=== PATIENT | male | born 1955 | race Caucasian/White ===

== ENCOUNTER 2021-10-13 08:56 | Day surgery (SDC) | payer MEDICAID ==
[~2021-10-13 08:56] MED LIST: Lactated Ringers 1,000 ML IV SCH; Lidocaine 1%/Sod Bicarbonate in NS 8.4% 1 ML Syringe IDERM PRN; Sodium Chloride 0.9% 10 ML Syringe FLUSH PRN; Sodium Chloride 0.9% 10 ML Syringe FLUSH SCH
[2021-10-13] MEDS ORDERED: Sodium Chloride 0.9% 1,000 ML IV SCH (10:00)
[2021-10-13] MEDS ORDERED: traMADol 50 MG Tab PO ONE (11:00)
[2021-10-13] MEDS ORDERED: Pregabalin 25 MG Cap PO ONE (11:00)
[2021-10-13] MEDS ORDERED: Propofol 200 MG/20 ML SDV ONE ×3 (11:03→11:56)
[2021-10-13] MEDS ORDERED: fentaNYL 100 MCG/2 ML SDV ONE (11:26)
[2021-10-13 13:04] VITALS: BP 127/75; PULSE 78
[2021-10-13] MEDS ORDERED: Sodium Chloride 0.9% 1,000 ML ONE (13:34)
== END 2021-10-13 12:50 | disposition home or self-care (01) ==
LOC: JD.SDS 08:56
PROVIDERS: ATTEND Surgery
DX: Z12.11 Encounter for screening for malignant neoplasm of colon (principal); D12.3 Benign neoplasm of transverse colon; K57.30 Diverticulosis of large intestine without perforation or abscess without bleeding; K64.9 Unspecified hemorrhoids; I12.9 Hypertensive chronic kidney disease with stage 1 through stage 4 chronic kidney disease, or unspecified chronic kidney disease; E78.5 Hyperlipidemia, unspecified; E11.22 Type 2 diabetes mellitus with diabetic chronic kidney disease; I25.10 Atherosclerotic heart disease of native coronary artery without angina pectoris; N18.30 Chronic kidney disease, stage 3 unspecified; E11.42 Type 2 diabetes mellitus with diabetic polyneuropathy; G47.33 Obstructive sleep apnea (adult) (pediatric); N40.0 Benign prostatic hyperplasia without lower urinary tract symptoms; Z98.890 Other specified postprocedural states; Z79.82 Long term (current) use of aspirin; Z79.4 Long term (current) use of insulin; Z79.899 Other long term (current) drug therapy; Z88.8 Allergy status to other drugs, medicaments and biological substances; Z87.891 Personal history of nicotine dependence
CPT/HCPCS: 45380; A9270; J2704; J3010; J7030; 00812

== ENCOUNTER 2022-06-17 12:47 | Inpatient (IN) | payer MEDICAID ==
[2022-06-17] MEDS ORDERED: Sodium Chloride 0.9% 10 ML Syringe FLUSH PRN (12:51)
[2022-06-17] MEDS ORDERED: Sodium Chloride 0.9% 1,000 ML IV ONE ×2 (12:51→14:15)
[2022-06-17] MEDS ORDERED: Cefepime 2 GM in Sodium Chloride 0.9% 50 ML IV ONE (15:13)
[2022-06-17] MEDS ORDERED: Insulin Regular, Human 100 Units/ML 3 ML Vial IV ONE ×3 (15:15→23:30)
[2022-06-17 17:12] LABS: CORONAVIRUS COVID-19 NAA NEGATIVE (NEGATIVE)
[2022-06-17] MEDS ORDERED: Ondansetron 4 MG/2 ML SDV IV PRN (17:44)
[2022-06-17] MEDS ORDERED: Heparin Sodium 5,000 Units/ML Vial SUBCUT SCH (17:45)
[2022-06-17] MEDS: Acetaminophen 325 MG Tab PO PRN (20:54)
[2022-06-17] MEDS: Heparin Sodium 5,000 Units/ML Vial SUBCUT SCH ×2 (20:55→23:39)
[2022-06-17] MEDS ORDERED: Insulin Lispro 100 Unit/ML 3 ML KwikPen SUBCUT ONE (21:09)
[2022-06-17] MEDS: Insulin Lispro 100 Unit/ML 3 ML KwikPen SUBCUT SCH (21:12)
[2022-06-17] MEDS: Insulin Glargine,Human Rec. Analog 100 Units/ML 3 ML Pen SUBCUT SCH (21:32)
[2022-06-17] MEDS: Mycophenolate Mofetil 250 MG Cap PO SCH (23:46)
[2022-06-18] MEDS: Acetaminophen 325 MG Tab PO PRN ×3 (00:59→23:45)
[2022-06-18] MEDS: Sodium Chloride 0.9% 1,000 ML IV SCH ×2 (03:21→13:21)
[2022-06-18] MEDS: Heparin Sodium 5,000 Units/ML Vial SUBCUT SCH ×2 (06:16→19:03)
[2022-06-18] MEDS: Insulin Glargine,Human Rec. Analog 100 Units/ML 3 ML Pen SUBCUT SCH ×3 (06:48→22:15)
[2022-06-18] MEDS: Insulin Lispro 100 Unit/ML 3 ML KwikPen SUBCUT SCH ×8 (06:49→22:16)
[2022-06-18] MEDS: Aspirin 81 MG Tab.Chew PO SCH (09:06)
[2022-06-18] MEDS: Metoprolol Tartrate 25 MG Tab PO SCH ×3 (09:06→23:50)
[2022-06-18] MEDS: Pregabalin 25 MG Cap PO SCH ×3 (09:07→23:47)
[2022-06-18] MEDS: Mycophenolate Mofetil 250 MG Cap PO SCH ×2 (09:07→19:45)
[2022-06-18] MEDS: predniSONE 5 MG Tab PO SCH (09:08)
[2022-06-18] MEDS ORDERED: VANCOmycin 1.25 GM/250 ML 1.25 GM in Premix Bag 1 BAG IV SCH (16:00)
[2022-06-18] MEDS ORDERED: oxyCODONE 5 MG Tab PO PRN (17:53)
[2022-06-18] MEDS: Cefepime 2 GM in Sodium Chloride 0.9% 50 ML IV SCH (17:53)
[2022-06-18] MEDS: traMADol 50 MG Tab PO PRN (19:46)
[2022-06-19] MEDS: Sodium Chloride 0.9% 1,000 ML IV SCH ×2 (01:31→03:04)
[2022-06-19] MEDS: Acetaminophen 325 MG Tab PO PRN ×2 (04:08→21:20)
[2022-06-19] MEDS: traMADol 50 MG Tab PO PRN ×2 (04:08→21:39)
[2022-06-19] MEDS: Insulin Lispro 100 Unit/ML 3 ML KwikPen SUBCUT SCH ×7 (06:56→21:25)
[2022-06-19] MEDS: Heparin Sodium 5,000 Units/ML Vial SUBCUT SCH ×2 (06:56→18:28)
[2022-06-19] MEDS ORDERED: Insulin Lispro 100 Unit/ML 3 ML KwikPen SUBCUT SCH ×2 (07:30→17:30)
[2022-06-19] MEDS: Pregabalin 25 MG Cap PO SCH ×2 (08:18→21:20)
[2022-06-19] MEDS: predniSONE 5 MG Tab PO SCH (08:19)
[2022-06-19] MEDS: Aspirin 81 MG Tab.Chew PO SCH (08:19)
[2022-06-19] MEDS: Metoprolol Tartrate 25 MG Tab PO SCH ×2 (08:19→21:20)
[2022-06-19] MEDS: Mycophenolate Mofetil 250 MG Cap PO SCH ×2 (08:32→21:20)
[2022-06-19] MEDS: Insulin Glargine,Human Rec. Analog 100 Units/ML 3 ML Pen SUBCUT SCH ×2 (08:32→21:38)
[2022-06-19] MEDS: Cefepime 2 GM in Sodium Chloride 0.9% 50 ML IV SCH (15:12)
[2022-06-20] MEDS: Acetaminophen 325 MG Tab PO PRN ×3 (01:13→16:42)
[2022-06-20] MEDS: Heparin Sodium 5,000 Units/ML Vial SUBCUT SCH ×2 (06:42→18:26)
[2022-06-20] MEDS: Insulin Lispro 100 Unit/ML 3 ML KwikPen SUBCUT SCH ×8 (09:27→21:23)
[2022-06-20] MEDS: Insulin Glargine,Human Rec. Analog 100 Units/ML 3 ML Pen SUBCUT SCH ×2 (09:28→21:24)
[2022-06-20] MEDS: predniSONE 5 MG Tab PO SCH (09:29)
[2022-06-20] MEDS: Pregabalin 25 MG Cap PO SCH ×2 (09:29→21:25)
[2022-06-20] MEDS: Metoprolol Tartrate 25 MG Tab PO SCH ×2 (09:29→21:26)
[2022-06-20] MEDS: Aspirin 81 MG Tab.Chew PO SCH (09:29)
[2022-06-20] MEDS: Mycophenolate Mofetil 250 MG Cap PO SCH ×2 (09:33→21:25)
[2022-06-20] MEDS: cefTRIAXone 2 GM in Sodium Chloride 0.9% 100 ML IV SCH (11:53)
[2022-06-20] MEDS: Polyethylene Glycol 3350 Powder 17 GM Packet PO SCH (11:53)
[2022-06-21] MEDS: Acetaminophen 325 MG Tab PO PRN (06:22)
[2022-06-21] MEDS: Heparin Sodium 5,000 Units/ML Vial SUBCUT SCH ×2 (06:49→17:57)
[2022-06-21] MEDS: Polyethylene Glycol 3350 Powder 17 GM Packet PO SCH (08:11)
[2022-06-21] MEDS: Metoprolol Tartrate 25 MG Tab PO SCH ×2 (08:12→21:04)
[2022-06-21] MEDS: predniSONE 5 MG Tab PO SCH (08:12)
[2022-06-21] MEDS: Pregabalin 25 MG Cap PO SCH ×2 (08:12→21:03)
[2022-06-21] MEDS: Aspirin 81 MG Tab.Chew PO SCH (08:12)
[2022-06-21] MEDS: Mycophenolate Mofetil 250 MG Cap PO SCH ×2 (08:22→21:03)
[2022-06-21] MEDS: Insulin Glargine,Human Rec. Analog 100 Units/ML 3 ML Pen SUBCUT SCH ×2 (08:29→21:06)
[2022-06-21] MEDS: Insulin Lispro 100 Unit/ML 3 ML KwikPen SUBCUT SCH ×6 (08:31→21:13)
[2022-06-21] MEDS: cefTRIAXone 2 GM in Sodium Chloride 0.9% 100 ML IV SCH (12:36)
[2022-06-21] MEDS ORDERED: Piperacillin/Tazobactam 4.5 GM in Sodium Chloride 0.9% 100 ML IV ONE (13:00)
[2022-06-21] MEDS: cefTRIAXone 1 GM in Sodium Chloride 0.9% 100 ML IV SCH (16:17)
[2022-06-21] MEDS ORDERED: VANCOmycin 750 MG/150 ML 750 MG in Premix Bag 1 BAG IV SCH (17:00)
[2022-06-21] MEDS ORDERED: Pantoprazole 40 MG Tab.CR PO ONE (17:15)
[2022-06-21] MEDS ORDERED: Alum Hydrox/Mag Hydrox/Simeth 30 ML, Lidocaine 2% 15 ML PO ONE ×2 (17:15)
[2022-06-21] MEDS: Piperacillin/Tazobactam 4.5 GM in Sodium Chloride 0.9% 100 ML IV SCH (21:16)
[2022-06-21] MEDS: traMADol 50 MG Tab PO PRN (21:34)
[2022-06-22] MEDS: Piperacillin/Tazobactam 4.5 GM in Sodium Chloride 0.9% 100 ML IV SCH (05:02)
[2022-06-22] MEDS: Heparin Sodium 5,000 Units/ML Vial SUBCUT SCH (05:02)
[2022-06-22] MEDS: Insulin Lispro 100 Unit/ML 3 ML KwikPen SUBCUT SCH ×2 (06:46→11:33)
[2022-06-22] MEDS: Polyethylene Glycol 3350 Powder 17 GM Packet PO SCH (08:33)
[2022-06-22] MEDS: Metoprolol Tartrate 25 MG Tab PO SCH (08:34)
[2022-06-22] MEDS: predniSONE 5 MG Tab PO SCH (08:34)
[2022-06-22] MEDS: Mycophenolate Mofetil 250 MG Cap PO SCH (08:35)
[2022-06-22] MEDS: Pregabalin 25 MG Cap PO SCH (08:35)
[2022-06-22] MEDS: Insulin Glargine,Human Rec. Analog 100 Units/ML 3 ML Pen SUBCUT SCH (08:36)
[2022-06-22] MEDS: Aspirin 81 MG Tab.Chew PO SCH (08:40)
[2022-06-22] MEDS: traMADol 50 MG Tab PO PRN (08:41)
[2022-06-22] MEDS ORDERED: Tacrolimus 1 MG Cap PO SCH (09:00)
[2022-06-22] MEDS ORDERED: Magnesium Sulfate/Water 2 GM in Premix Bag 1 BAG IV ONE (09:30)
[2022-06-22] MEDS: cefTRIAXone 1 GM in Sodium Chloride 0.9% 100 ML IV SCH (12:34)
[2022-06-22 14:58] VITALS: BP 107/58; PULSE 75
== END 2022-06-22 14:25 | disposition home or self-care (01) | DRG 871 ==
LOC: JD.ED 12:47 → JD.MS 17:38
PROVIDERS: ADMIT Internal Medicine; ATTEND Internal Medicine
DX: A41.9 Sepsis, unspecified organism (principal); A41.4 Sepsis due to anaerobes; E11.00 Type 2 diabetes mellitus with hyperosmolarity without nonketotic hyperglycemic-hyperosmolar coma (NKHHC); D84.9 Immunodeficiency, unspecified; N18.30 Chronic kidney disease, stage 3 unspecified; N17.9 Acute kidney failure, unspecified; Z94.0 Kidney transplant status; E87.1 Hypo-osmolality and hyponatremia; Z86.718 Personal history of other venous thrombosis and embolism; N39.0 Urinary tract infection, site not specified; E11.43 Type 2 diabetes mellitus with diabetic autonomic (poly)neuropathy; K31.84 Gastroparesis; R65.20 Severe sepsis without septic shock; E11.65 Type 2 diabetes mellitus with hyperglycemia; E11.40 Type 2 diabetes mellitus with diabetic neuropathy, unspecified; E11.22 Type 2 diabetes mellitus with diabetic chronic kidney disease; N18.2 Chronic kidney disease, stage 2 (mild); E87.5 Hyperkalemia; H54.7 Unspecified visual loss; I25.10 Atherosclerotic heart disease of native coronary artery without angina pectoris; E78.00 Pure hypercholesterolemia, unspecified; I12.9 Hypertensive chronic kidney disease with stage 1 through stage 4 chronic kidney disease, or unspecified chronic kidney disease; G47.30 Sleep apnea, unspecified; Z20.822 Contact with and (suspected) exposure to COVID-19; N40.0 Benign prostatic hyperplasia without lower urinary tract symptoms; E66.9 Obesity, unspecified; D69.6 Thrombocytopenia, unspecified; Z96.659 Presence of unspecified artificial knee joint; Z79.4 Long term (current) use of insulin; Z79.82 Long term (current) use of aspirin; Z79.52 Long term (current) use of systemic steroids; Z79.899 Other long term (current) drug therapy; Z88.8 Allergy status to other drugs, medicaments and biological substances; Z95.5 Presence of coronary angioplasty implant and graft; Z86.16 Personal history of COVID-19; Z68.35 Body mass index [BMI] 35.0-35.9, adult
CPT/HCPCS: 0240U; 36415; 71045; 71045-26; 74176; 74176-26; 80048; 80053; 80197; 80202; 81001; 82009; 82947; 83605; 83735; 84145; 85007; 85025; 85027; 85610; 86140; 87040; 87077; 87086; 87088; 87154; 87186; 93005; 97116-GP; 97162-GP; A9270-GY; J0692; J0696; J1644; J1815; J1815-GY; J2543; J3370; J3475; J3490; J7030; J7050; J7507; J7512

== ENCOUNTER 2022-07-08 11:22 | Emergency (ER) | payer MEDICARE, MEDICAID ==
[2022-07-08 11:55] VITALS: PULSE 102
[2022-07-08] MEDS ORDERED: Sodium Chloride 0.9% 10 ML Syringe FLUSH PRN (12:32)
[2022-07-08] MEDS ORDERED: Sodium Chloride 0.9% 1,000 ML IV ONE (12:32)
[2022-07-08 15:03] LABS: CORONAVIRUS COVID-19 NAA NEGATIVE (NEGATIVE)
[2022-07-08 15:43] VITALS: BP 106/50
[2022-07-08] MEDS ORDERED: Levofloxacin/Dextrose 5%-Water 750 MG in Premix Bag 1 BAG IV ONE (16:54)
== END 2022-07-08 23:13 | disposition home or self-care (01) ==
LOC: JD.ED 11:22
DX: N43.3 Hydrocele, unspecified (principal); I86.1 Scrotal varices; N30.01 Acute cystitis with hematuria; I12.9 Hypertensive chronic kidney disease with stage 1 through stage 4 chronic kidney disease, or unspecified chronic kidney disease; N18.30 Chronic kidney disease, stage 3 unspecified; I25.10 Atherosclerotic heart disease of native coronary artery without angina pectoris; E11.9 Type 2 diabetes mellitus without complications; E66.9 Obesity, unspecified; Z68.35 Body mass index [BMI] 35.0-35.9, adult; Z88.6 Allergy status to analgesic agent; Z88.1 Allergy status to other antibiotic agents; Z79.899 Other long term (current) drug therapy; Z79.82 Long term (current) use of aspirin; Z20.822 Contact with and (suspected) exposure to COVID-19
CPT/HCPCS: 0240U; 36415; 71046; 76870; 80053; 81001; 83605; 85007; 85027; 85610; 86140; 87040; 87086; 87088; 87186; 93971; 93975; 96361; 96365; 99284; J1956; J3490; J7030